=== PATIENT | female | born 1980 | race Caucasian/White ===

== ENCOUNTER → 2017-04-13 | Day surgery (SDC) | payer OTHER ==
[~2017-04-13] VITALS: Ht 157.5 cm; Wt 65.8 kg
--- NOTE | 2017-04-13 15:54 | Operative Report ---
Operative/Inv Procedure Report Surgery Date: 04/13/17 Name of Procedure: skene's infected gland excision, cystoscopy Pre-Operative Diagnosis: infected skene's gland Post-Operative Diagnosis: same Estimated Blood Loss: less than 50ml Surgeon/Women'S Studies Lecturer: ALLAN KIRKLAND MD Anesthesia: local monitored anesthesi Specimens: skene's gland cyst and infected cyst exudate culture Complications: none Condition: stable Operative Indication: painful infected skene's gland that did not respond to po antibiotics. Operative/Procedure Note Note: This an operative dictation on patient Cathryn Acevedo. She was identified in the holding area and consented for excision of infected Newbury's gland with cystoscopy. The risks benefits and alternatives of the surgery were given and all questions were answered for her and her . Patient was taken to the operating room placed on the operating table in the supine position. Timeout was performed and IV antibiotics were infused and IV sedation was begun. Patient was placed in the dorsal lithotomy position. She was shaved and prepped and draped in the standard sterile fashion. Hernandez catheter was placed at the beginning of the case and the bladder was emptied. The Hernandez was placed on the patient's abdomen. An incision was made to the left portion of the infected [place]'s gland which was easily identified. Prior to doing so a culture was taken as when the gland was squeezed white pus was visible and this was sent off for culture. The incision was made with the blade and Metzenbaum scissors were used to excise the cyst gland the in its entirety. This was sent off to pathology. The space was closed with a 3-0 Vicryl interrupted sutures. This also aided in hemostasis. The incision was then closed with the 3-0 Vicryl running suture. Lidocaine was infiltrated at the end of the case, 3 mL total. A cystoscopy was also performed to ensure that there was no urethral injury. The bladder was globally inspected and was in normal anatomic state. The urethra had no signs of injury or defect. The bladder was emptied and the cystoscope was removed. Sponge and needle count were correct at the end of the case. The patient tolerated the procedure well. Findings: left infected skene's gland no urethral injury Discharge Disposition: Same Day Admissions
== END ==
LOC: STS 02:32
DX: N34.2 Other urethritis (principal); E28.2 Polycystic ovarian syndrome
CPT/HCPCS: 87070; 87075; 87205; 81025; 88305; J0690; J2250